=== PATIENT | female | born 1950 | race Caucasian/White ===

== ENCOUNTER 2017-11-30 09:14 | Emergency (ER) | payer OTHER, MEDICARE ==
--- NOTE | 2017-11-30 10:52 | CR ---
DATE OF SERVICE: 11/30/17 CLINICAL DATA: r hand pain RIGHT HAND: There is a mildly impacted comminuted fracture through the head of the 5th metacarpal. No other acute abnormalities. 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 [id number] [facility]
--- NOTE | 2017-12-07 09:25 | ER ---
DATE OF SERVICE: 11/30/2017 HPI: A 67-year-old lady who comes in with complaints of injuring her right hand while she was helped to move a trailer. She was holding onto the hitch and somehow fell and landed underneath the trailer. She has been using a homemade brace to the right hand, but does not feel that things are getting better. The patient states that she did lose consciousness for just a few seconds, but she feels fine as far as any visual changes or headache. She has not been nauseated or vomiting at all and she is not concerned about her head and she is here only because of her hand. She is pointing to the lateral side of the right hand. She states that when she tries to use it, it is too quite painful. Most of the pain appears to be at the knuckle area at the base of the fourth and fifth fingers. OBJECTIVE: GENERAL APPEARANCE: The patient is awake and alert, in no obvious distress. VITAL SIGNS: Reviewed as listed. EXTREMITIES: Examining the right hand reveals mild swelling over the dorsal aspect of the hand. There is no bruising. There is definite tenderness with palpation of the distal fourth and fifth metacarpals. Capillary refill involving the fingers of the injured hand are good. LAB AND X-RAY: X-ray of the right hand was obtained. There is a fracture of the distal fifth metacarpal with minimal displacement. DIAGNOSIS: Fracture of the right hand, fifth metacarpal. TREATMENT PLAN: A gutter splint was applied today. The patient is to use over- the-counter medications for pain control and she does need to follow up her casting within 3 to 5 days. She was also given a sling to help keep her arm elevated. The patient had no further questions. PATRICIA/MODNadine /[id number] JOHN
== END 2017-11-30 10:16 | disposition home or self-care (01) ==
LOC: LB.ED 09:14
DX: S62.396A Other fracture of fifth metacarpal bone, right hand, initial encounter for closed fracture (principal); I10 Essential (primary) hypertension; W18.39XA Other fall on same level, initial encounter; X50.0XXA Overexertion from strenuous movement or load, initial encounter
CPT/HCPCS: 29125; 73120-RT; 99283